=== PATIENT | female | born 1985 | race Caucasian/White ===

== ENCOUNTER 2024-02-09 13:41 | Emergency (ER) | payer OTHER, SELFPAY ==
[2024-02-09 13:53] VITALS: BP 117/74; PULSE 72; RESP 18; TEMP 36.7; O2SAT 97; BMI 27.5
--- NOTE | 2024-02-09 14:18 | ED.GENADULT ---
HPI - General Adult General Chief complaint: Abdominal Pain Stated complaint: upper abdominal pain Time Seen by Provider: 02/09/24 14:17 History of Present Illness HPI narrative: Woke up with with upper/ radiating right side abdominal pain. Vomited 4 times. Fairly constant, a little better when laying down. No abdominal surgeries in the past. No ill household contacts. Water at 1:30 pm and last intake of food was at midnight. 38-year-old woman presenting to the emergency department with complaint of discomfort across the upper abdomen. Concern of potential gallbladder problem. She does admit to having a number of alcoholic drinks last night. Had a peanut butter sandwiches some sort around midnight. Awake around 630 this morning with this discomfort. She does note that has trouble sometimes with gas pains. She did try some Gas-X this did not help. Is fairly persistent discomfort. She has vomited. Feels a little bit better when she is lying down. Is still nauseated. Is not radiating into her back that she knows of. We also then have some concerns about pancreatitis as she begins considering her differential. 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 Does not typically have problems. Denies history of notable heartburn. Has not had food intolerance is either. No family history of gallbladder disease. Is not constipated with normal bowel movement this morning which did not affect her discomfort. No history of abdominal surgeries. Related Data Home Medications Medication Instructions Recorded Confirmed No Known Home Medications 02/09/24 02/09/24 Allergies Allergy/AdvReac Type Severity Reaction Status Date / Time No Known Drug Allergies Allergy Verified 09/24/23 08:27 Review of Systems Status of ROS: Reports: 6 or more systems reviewed and unremarkable except as noted in History and below [facility] Medical History Bronchitis ?J40 - Bronchitis, not specified as acute or chronic (ICD-10) Wheezing ?R06.2 - Wheezing (ICD-10) Cough ?R05.9 - Cough, unspecified (ICD-10) Social History Smoking Status: Former smoker Do you use any of these nicotine containing products: None How often do you have a drink containing alcohol: never How often do you have six or more drinks on one occasion: Never AUDIT-C Alcohol total score: 0 Non-prescribed substance use: denies use service: No Exam Narrative: Exam Narrative: Pleasant. Appears uncomfortable. Breathing easily. Skin is warm and dry. Lungs appear to be clear. Heart in regular rate and rhythm without murmur rub or gallop. Abdomen is soft and not tympanitic. She is moderately tender without peritoneal signs across the upper abdomen perhaps more so in the epigastrium. Negative Villasenor's. No peritoneal signs. Skin is warm and dry. Appears to be well perfused. Extremities are without edema. Little tender in the flanks equally but she would think that is just an area of sensitivity. Const: Vital Signs, click to edit/add: Vital Signs - 24 hr 02/09/24 13:53 Temperature 98.0 F Pulse Rate [Pulse Oximeter] 72 Respiratory Rate 18 Blood Pressure [Ri ght Upper Arm] 117/74 Pulse Oximetry 71 L Oxygen Delivery Me thod Room Air Documenting provider has reviewed patient's vital signs: yes Course Vital Signs Vital signs: Initial Vital Signs Temperature 98.0 F 02/09/24 13:53 Temperature Source Temporal Artery Scan 02/09/24 13:53 Pulse Rate 72 02/09/24 13:53 Respiratory Rate 18 02/09/24 13:53 Blood Pressure 117/74 02/09/24 13:53 Blood Pressure Mean 88 02/09/24 13:53 Blood Pressure Position Sitting 02/09/24 13:53 Pulse Oximetry 97 02/09/24 13:53 Oxygen Delivery Method Room Air 02/09/24 13:53 Vital Signs Temperature 98.0 F 02/09/24 13:53 Pulse Rate 72 02/09/24 13:53 Respiratory Rate 18 02/09/24 13:53 Blood Pressure 117/74 02/09/24 13:53 Pulse Oximetry 97 02/09/24 13:53 Oxygen Delivery Method Room Air 02/09/24 13:53 Temperature 98.0 F 02/09/24 13:53 Pulse Rate 65 02/09/24 17:11 Respiratory Rate 18 02/09/24 17:11 Blood Pressure 108/60 02/09/24 17:11 Pulse Oximetry 97 02/09/24 17:11 Oxygen Delivery Method Room Air 02/09/24 17:11 Medications Administered Medications: Discontinued Medications Generic Name Dose Route Start Last Admin Trade Name Freq PRN Reason Stop Dose Admin Sodium Chloride 1,000 mls @ 1,000 mls/hr 02/09/24 15:11 02/09/24 16:00 0.9 % Sodium Chloride 1000 Ml IV 02/09/24 16:10 Infused .Q1H ONE Infusion Ketorolac Tromethamine 30 mg 02/09/24 15:30 02/09/24 15:40 Ketorolac 30 Mg/Ml Inj IVP 02/09/24 15:31 30 mg ONCE ONE Administration Lidocaine/Aluminum/Magnesium/Simeth 30 ml 02/09/24 14:32 02/09/24 14:38 Gi Cocktail (Visc Lido/Antacid) 30 Ml PO 02/09/24 14:33 30 ml ONCE ONE Administration Ondansetron HCl 4 mg 02/09/24 14:32 02/09/24 14:38 Ondansetron Odt 4 Mg Tab PO 02/09/24 14:33 4 mg ONCE ONE Administration Medical Decision Making MDM Narrative Medical decision making narrative: This certainly could be gastritis related to alcohol last night or some new heartburn. May well be gallbladder disease. I think less likely pancreatitis but also possible. Doubtful intestinal obstruction. Unlikely cardiac disease. We discussed larger workup initially versus trial of antiemetic and GI cocktail; she opted to start with the latter. Not really improved with GI cocktail. With continued discomfort IVs established. Received a L normal saline and ketorolac. Urine shows some ketones but otherwise is urine looks to be uninfected. White count slightly elevated at 11.2. Normal transaminases This would still appear to be some degree of heartburn or gastritis but certainly could be temporary resolved gallbladder disease. No evidence in labs at least of retained duct stone. Discussed options with Rand. She would like to yet do an ultrasound. I do not think this is reasonable. Did discuss findings then with presentation specialist noted ultrasound of the upper abdomen/limited to be normal. See patient discharge plan for further discussion Lab Data Lab results reviewed: Yes I reviewed the patient's lab results Labs: Lab Results 02/09/24 02/09/24 Range/Units 13:58 15:20 WBC 11.20 H (4.50-11.00) K/uL RBC 4.47 (4.00-5.20) m/uL Hgb 13.9 (12.0-16.0) gm/dL Hct 41.3 (33.0-51.0) % MCV 92 (80-100) fL MCH 31 (26-34) pg MCHC 34 (32-36) gm/dL RDW Coeff of Atul 11.9 (11.5-15.5) % Plt Count 327 (140-440) K/uL Neut % (Auto) 73.7 H (42.0-72.0) % Lymph % (Auto) 20.1 (20-44) % [place] % (Auto) 4.7 (0.0-11.0) % Eos % (Auto) 1.0 (0.0-7.0) % Baso % (Auto) 0.4 (0.0-3.0) % Neut # (Auto) 8.30 H (1.7-7.0) K/uL Lymph # (Auto) 2.30 (0.90-2.90) K/uL [place] # (Auto) 0.50 (0.00-0.90) K/UL Eos # (Auto) 0.10 (0.00-0.50) K/uL Baso # (Auto) 0.00 (0.00-0.30) K/uL Abs Immat Gran (auto) 0.00 (0.00-0.30) K/uL Imm/Tot Granulo (auto) 0.1 % Sodium 136 (135-149) mmol/L Potassium 3.9 (3.6-5.1) mmol/L Chloride 104 (96-114) mmol/L Carbon Dioxide 22 (20-32) mmol/L Anion Gap 10 (7-15) mEq/L BUN 13 (5-24) mg/dL Creatinine 0.5 (0.5-1.5) mg/dL Estimated Creat Clear 133.03 Estimated GFR 124 ml/min Glucose 101 (60-115) mg/dL Calcium 9.2 (8.4-10.6) mg/dL Total Bilirubin 1.5 (0.1-1.5) mg/dL Direct Bilirubin 0.0 (0.0-0.5) mg/dL AST 25 (12-35) U/L ALT 27 (4-35) U/L Alkaline Phosphatase 73 (40-150) U/L C-Reactive Protein < 0.5 L (0.5-1.0) mg/dL Total Protein 8.1 (6.0-8.3) g/dL Albumin 4.4 (3.3-5.0) g/dL Lipase 59 (23-300) U/L Urine Color Dark yellow (Yellow) Urine Appearance Slightly Cloudy A (Clear) Urine pH 7.5 (5.0-8.5) Ur Specific [place] 1.020 (1.000-1.030) Urine Protein Trace A (Negative) Urine Glucose (UA) Negative (Negative) Urine Ketones 2+ A (Negative) Urine Blood Negative (Negative) Urine Nitrite Negative (Negative) Urine Bilirubin Negative (Negative) Urine Urobilinogen 0.2 (0.2-1.0) Ur Leukocyte Esterase Negative (Negative) Urine RBC 0-2 (0-2) Urine WBC 0-2 (0-5) Ur Squamous Epith Cells Moderate A (None-Few) Urine Bacteria Few A (None) Urine Mucus Few A (None) SARS-CoV-2 (PCR) Negative SARS-CoV-2 (Negative) Influenza Type A (PCR) Negative PCR FLU A (Negative) Influenza Type B (PCR) Negative PCR FLU B (Negative) RSV (PCR) Negative PCR RSV (Negative) Discharge Plan Discharge Clinical Impression: Epigastric pressure Patient Disposition: Home, Self-Care Condition: Improved Additional Instructions: This pressure may represent gastritis or similar. Consider taking famotidine 20-40 mg daily for a week. Might be better to do a slow advance of diet over the next 24 hours or so. Diluted juices, soup broths, rice, crackers, toast. Radiology has seen the ultrasound and noted it ?unremarkable?. Return for persistent and worsening pain, repeated vomiting, associated fever. Zofran from [facility] Prescriptions: No Action No Known Home Medications Follow Up/Referrals: Provider,Not a Local [Primary Care Provider] - Stand Alone Forms: [facility] ACQUISITIONealth Info Instructions
[2024-02-09 14:23] LABS: Appearance Urine Slightly Cloudy (Clear); Bilirubin Urine Negative (Negative); Blood Urine Negative (Negative); Color Urine Dark yellow (Yellow); Glucose Urine Negative (Negative); Ketones Urine 2+ (Negative); Leukocyte Esterase Urine Negative (Negative); Nitrite Urine Negative (Negative); Protein Urine Trace (Negative); Urobilinogen Urine 0.2 (0.2-1.0); pH Urine 7.5 (5.0-8.5)
[2024-02-09] MEDS: ONDANSETRON ODT 4 MG TAB PO (14:38)
[2024-02-09] MEDS: GI COCKTAIL (VISC LIDO/ANTACID) 30 ML PO (14:38)
[2024-02-09 14:45] LABS: Bacteria Urine Few; Mucus Urine Few; RBC Urine 0-2 (0-2); Squamous Epithelial Cell Urine Moderate (None-Few); WBC Urine 0-2 (0-5)
[2024-02-09 14:59] LABS: PCR FLU A Negative PCR FLU A (Negative); PCR FLU B Negative PCR FLU B (Negative); PCR RSV Negative PCR RSV (Negative); SARS PCR* Negative SARS-CoV-2 (Negative)
[2024-02-09] MEDS: 0.9 % SODIUM CHLORIDE 1000 ml 1,000 ML IV (15:20)
[2024-02-09 15:29] LABS: Basophils Percent Auto 0.4 % (0.0-3.0); Hematocrit 41.3 % (33.0-51.0); Hemoglobin* 13.9 gm/dL (12.0-16.0); Immature Granulocytes Pct Auto 0.1 %; Lymphocytes Percent Auto 20.1 % (20-44); Mean Corpuscular HGB Conc 34 gm/dL (32-36); Mean Corpuscular Hemoglobin 31 pg (26-34); Mean Corpuscular Volume 92 fL (80-100); Monocytes Percent Auto 4.7 % (0.0-11.0); Neutrophils Percent Auto 73.7 % (42.0-72.0); Platelet Count* 327 K/uL (140-440); RDW Coefficient of Variation % 11.9 % (11.5-15.5); Red Blood Count 4.47 m/uL (4.00-5.20)
[2024-02-09 15:30] LABS: Slide Review Reflex No
[2024-02-09] MEDS: KETOROLAC 30 MG/ML inj IVP (15:40)
[2024-02-09 15:46] LABS: Albumin* 4.4 g/dL (3.3-5.0); Chloride* 104 mmol/L (96-114); Sodium* 136 mmol/L (135-149)
[2024-02-09 15:47] LABS: Potassium* 3.9 mmol/L (3.6-5.1)
[2024-02-09 15:49] LABS: Creatinine* 0.5 mg/dL (0.5-1.5); Est. Creatinine Clearance* 133.03; Estimated Glomerular Filt Rate 124 ml/min
[2024-02-09 15:50] LABS: Alanine Aminotransferase* 27 U/L (4-35); Alkaline Phosphatase* 73 U/L (40-150); Anion Gap 10 mEq/L (7-15); Aspartate Amino Transferase* 25 U/L (12-35); Bilirubin Total* 1.5 mg/dL (0.1-1.5); Blood Urea Nitrogen* 13 mg/dL (5-24); Calcium* 9.2 mg/dL (8.4-10.6); Carbon Dioxide* 22 mmol/L (20-32); Glucose* 101 mg/dL (60-115); Lipase* 59 U/L (23-300); Total Protein* 8.1 g/dL (6.0-8.3)
[2024-02-09 15:56] LABS: C Reactive Protein* < 0.5 mg/dL (0.5-1.0)
--- NOTE | 2024-02-09 16:18 | US_ITS ---
Patient: EUNICE GARCIA Facility:?[facility] Patient ID:?[id number] Site Patient ID:?[id number]. Site :?[id number] Study:?US-Abdomen RUQ-02/09/2024 6:10:29 PM Ordering Physician:Benita Final Report: INDICATION: Epigastric pain. TECHNIQUE: Ultrasound abdomen limited. Sonographic images of the right upper quadrant were obtained using dorman-scale and color Doppler images. COMPARISON: None. FINDINGS: Liver: Normal in size and echotexture. No suspicious masses. No intrahepatic biliary dilatation. Gallbladder: No stones or sludge. Normal wall thickness. No pericholecystic fluid. Negative sonographic Villasenor`s sign. Common bile duct: 3 mm. Pancreas: Unremarkable. Right kidney: Normal in size. Normal echotexture and cortex. No suspicious masses, stones, or hydronephrosis. Vasculature: Proximal abdominal aorta and IVC are unremarkable. IMPRESSION: Unremarkable right upper quadrant ultrasound. Dictated by Javi Welch MD @ 02/09/2024 6:40:09 PM Signed by:?Javi Welch MD @02/09/2024 6:40:09 PM (Electronic Signature)
[2024-02-09 17:11] VITALS: BP 108/60; PULSE 65; RESP 18; O2SAT 97
== END 2024-02-09 18:54 | disposition home or self-care (01) ==
PROVIDERS: Emergency Provider Family Medicine
DX: R10.13 Epigastric pain (principal)
CPT/HCPCS: 36415; 76705; 80048; 80076; 81001; 83690; 85025; 86140; 87086; 87631; 96374; 99284; A9270; J1885; J7030